=== PATIENT | female | born 1980 | race Caucasian/White ===

== ENCOUNTER 2020-01-21 11:00 | Outpatient (CLI) | payer BC, SELFPAY | END 2020-01-21 11:01 | disposition home or self-care (01) | LOC: CHSLAB 11:05 | PROVIDERS: PCP Family Medicine; Visit Provider Specialist | DX: D22.4 Melanocytic nevi of scalp and neck (principal) | CPT/HCPCS: 88305 ==

== ENCOUNTER 2020-10-16 12:58 | Outpatient (CLI) | payer BC, SELFPAY | END 2020-10-16 12:59 | disposition home or self-care (01) | PROVIDERS: PCP Family Medicine; Visit Provider Specialist | DX: L98.9 Disorder of the skin and subcutaneous tissue, unspecified (principal) | CPT/HCPCS: 88305 ==

== ENCOUNTER 2021-11-02 11:13 | Outpatient (CLI) | payer BC, SELFPAY | END 2021-11-02 11:14 | disposition home or self-care (01) | LOC: CHSOUTPT 11:16 | PROVIDERS: PCP Family Medicine; Visit Provider Specialist | DX: D22.5 Melanocytic nevi of trunk (principal) | CPT/HCPCS: 88305 ==

== ENCOUNTER 2022-01-06 00:22 | Day surgery (SDC) | payer BC, SELFPAY ==
[2021-12-22 15:26] VITALS: BMI 32.3
--- NOTE | 2022-01-05 14:43 | WPDANESEPPF ---
Anes - Initial Pre Proc Eval Procedure: Operation Date: 01/06/22 07:30 Proposed Procedures p Colonoscopy - Nate Nicole DO Date/Time: 01/05/22 14:43 Surgeon: Nate Nicole DO Pre Op Diagnosis: change in bowel habits Patient Data Age: 41 Gender: F Height: 1.65 m Weight: 88 kg Allergies Allergy/AdvReac Type Severity Reaction Status Date / Time No Known Allergies Allergy Verified 01/06/22 06:26 Home Medications Medication Instructions Recorded Confirmed Type escitalopram oxalate 10 mg PO DAILY 12/22/21 12/22/21 History Patient hx anesthesia problems: none Family hx anesthesia problems: none Results Review: All pre-operative results and documents have been reviewed as part of the pre-operative evaluation. [facility] Past Medical History Medical History (Updated 01/05/22 @ 14:45 by Joseph Lux DO) Anxiety Surgical History Surgical History H/O: H/O: hysterectomy Family History Family History Mother Hyperlipidemia Social History Social History Smoking status: Never smoker Alcohol intake: never Substance use: never Substance use type: does not use Living arrangements: with family Spiritual care concerns: No Anes - Eval Final PreProcedure Day of Procedure 01/05/22 14:43 Patient weight: obese Heart: regular rate and rhythm Lungs: clear to auscultation and normal air movement Airway: Mallampati scale class II Neurological: alert and oriented Last oral intake: >/= 8 hours ASA classification: II Emergent: no Anesthetic plan: proceed Anesthesia type and monitoring: general GIVS and standard monitoring Results Review: All pre-operative results and documents have been reviewed as part of the pre-operative evaluation. Informed Consent: The patient's anesthetic plan and its attendant risks and benefits were discussed with the patient/family/POA. Questions were solicited and answers provided to the satisfaction of the patient/family/POA.
[2022-01-06 06:28] VITALS: BP 131/91; PULSE 81; RESP 18; TEMP 36.3; O2SAT 100
[2022-01-06] MEDS: LACTATED RINGERS 1,000 ML 150 ML IV CONT (06:36)
--- NOTE | 2022-01-06 07:32 | PM.IMHP ---
H&P: HPI History of Present Illness Date/Time: 01/06/22 07:32 Chief Complaint: Pelvic pain, change in bowel habits Narrative: this is a 41-year-old woman who presents for evaluation of pelvic and lower abdominal pain along with change in bowel habits. She has frequent constipation and feels like she has trouble fully evacuating. She has also had some suspicions of infections going on, but is not sure if she has had yeast infections or other sources of infection. She has not had any imaging for the abdominal pain. She denies any blood in her stools. She denies any family history colon cancer. She has never had a colonoscopy before. Review of Systems Review of Systems: All systems reviewed & are unremarkable except as noted in HPI and below Constitutional: Constitutional: Denies chills, Denies fever(s), Denies headache(s) and Denies weight loss Eyes: Eyes: Denies change in vision ENT: Denies dizziness, Denies headache(s), Denies neck mass and Denies throat swelling Cardiovascular: Cardiovascular: Denies chest pain, Denies lightheadedness and Denies dyspnea Respiratory: Respiratory: Denies cough, Denies dyspnea and Denies wheezing Gastrointestinal: Gastrointestinal: Denies abdominal pain, Reports change in bowel habits, Reports constipation, Denies nausea and Denies vomiting Genitourinary: Genitourinary: Denies hematuria and Denies dysuria Musculoskeletal: Musculoskeletal: Reports as per HPI Integumentary/Breasts: Skin/Breast: Reports as per HPI Neurologic: Denies dizziness and Denies headache(s) Allergic/Immunologic: Allergic/Immunologic: Denies throat swelling and Denies wheezing PMF Past Medical History Medical History Anxiety Surgical History Surgical History H/O: H/O: hysterectomy Family History Family History Mother Hyperlipidemia Social History Social History Smoking status: Never smoker Alcohol intake: never Substance use: never Substance use type: does not use Living arrangements: with family Spiritual care concerns: No Meds Home Medications and Allergies Home Medications Medication Instructions Recorded Confirmed Type escitalopram oxalate 10 mg PO DAILY 12/22/21 12/22/21 History Allergies Allergy/AdvReac Type Severity Reaction Status Date / Time No Known Allergies Allergy Verified 01/06/22 06:26 Vital Signs Vital Signs - 24 hr 01/06/22 06:28 Temperature 36.3 C L Pulse Rate 81 Respiratory Rate 18 Blood Pressure 131/91 H Pulse Oximetry 100 Exam Const: General: no acute distress and alert Orientation/consciousness: patient oriented x3 HENMT: Head: normocephalic and atraumatic Ears: hearing grossly normal bilaterally General nose exam: Normal nares present Mouth: Yes Normal oral and palatal mucosa present Eyes: Periorbital: periorbital findings normal Sclera: sclerae normal EOM: EOMs intact bilaterally Neck: Neck: normal visual inspection, no lymphadenopathy and trachea midline Chest: Chest palpation & inspection: normal inspection of the chest Resp: Effort & Inspection: normal respiratory effort Auscultation: clear to auscultation bilaterally Cardio: Jugular venous distension: no JVD Rate: regular rate Rhythm: regular rhythm Heart sounds: S1 normal heart sound present and S2 normal heart sound present Peripheral pulses: Peripheral pulses 2+ throughout GI: Inspection: normal to inspection GI Palp: Yes Soft to palpation, No Tenderness to palpation present (GI), No Guarding due to palpation present (GI) and No Rebound tenderness present Percussion: Yes normal to percussion Auscultation: normal bowel sounds : General: Yes no CVA tenderness Back/Spine/Pelvis: Back: no CVA tenderness Neuro: Genera
[2022-01-06 07:57] VITALS: BP 119/76; PULSE 67; RESP 20; O2SAT 97
[2022-01-06 08:07] VITALS: BP 144/82; PULSE 72; RESP 20; O2SAT 99
[2022-01-06 08:17] VITALS: BP 139/86; PULSE 70; RESP 18; O2SAT 99
== END 2022-01-06 08:32 | disposition home or self-care (01) ==
PROVIDERS: PCP Family Medicine; Visit Provider Surgery
PROC: 0DJD8ZZ Inspection of Lower Intestinal Tract, Via Natural or Artificial Opening Endoscopic (ICD-10-PCS; CPT 45378; principal; 2022-01-06 07:30)
DX: R19.4 Change in bowel habit (principal); K62.89 Other specified diseases of anus and rectum; K64.8 Other hemorrhoids; F41.9 Anxiety disorder, unspecified; E66.9 Obesity, unspecified; Z68.32 Body mass index [BMI] 32.0-32.9, adult
CPT/HCPCS: 45378; J2704; J7120

== ENCOUNTER 2022-04-14 11:51 | Outpatient (CLI) | payer BC, SELFPAY ==
--- NOTE | ~2022-04-14 | XR_ITS ---
XR pelvis 1-2V 04/14/2022 12:13 Indication: Pelvic pain Procedure: AP pelvis Comparison: No prior studies for comparison. Findings: Pelvic rings are intact. No fracture or traumatic malalignment. No significant soft tissue abnormality. Sacral foramen are symmetric. There are pelvic phleboliths. Impression: 1: No significant bone or joint abnormality. Reviewed, dictated and finalized at location A. Impression: 1: No significant bone or joint abnormality.
--- NOTE | ~2022-04-14 | XR_ITS ---
XR lumbar spine 2-3V 04/14/2022 12:13 Indication: Low back pain. Hip pain. Pain is chronic. Procedure: 3 views lumbar spine Comparison: No prior studies for comparison. Findings: There is moderate disc narrowing at L3-4. There is disc narrowing as well as at L5-S1. No a cute fracture or traumatic malalignment. Mild wedge-shaped appearance to T11-L1, likely chronic. No e vidence for spondylolisthesis. Mild levocurvature of the lumbar spine. Sacral foramen are symmetric. Impression: 1: Moderate lumbar spondylosis. Reviewed, dictated and finalized at location A. Impression: 1: Moderate lumbar spondylosis.
== END 2022-04-14 11:52 | disposition home or self-care (01) ==
LOC: CHSIMG 11:57
PROVIDERS: PCP Chiropractor; Visit Provider Chiropractor
DX: M54.50 Low back pain, unspecified (principal); R10.2 Pelvic and perineal pain; M25.559 Pain in unspecified hip
CPT/HCPCS: 72100; 72170

== ENCOUNTER 2022-04-21 07:42 | Outpatient (CLI) | payer BC, SELFPAY ==
--- NOTE | ~2022-04-21 | MM_ITS ---
EXAMINATION: MM screening jason BI w brown HISTORY: Screening TECHNIQUE: Craniocaudal and mediolateral oblique 3-D tomosynthesis images were obtained and synthetic 2-D images were generated. CAD analysis was submitted and interpreted. COMPARISON: No prior mammogram is available for comparison at this institution. BREAST PARENCHYMAL COMPOSITION: There are scattered areas of fibroglandular density. FINDINGS: There are asymmetries in the right breast. No discrete mass, architectural distortion or ab normal calcifications. The left breast is unremarkable without evidence for malignancy. IMPRESSION: 1. Right breast asymmetries. 2. Additional mammographic views and possible breast ultrasound are recommended. BI-RADS Category 0: Incomplete: Needs additional imaging evaluation. Reviewed, dictated and finalized at location A. IMPRESSION: 1. Right breast asymmetries. 2. Additional mammographic views and possible breast ultrasound are recommended . BI-RADS Category 0: Incomplete: Needs additional imaging evaluation.
== END 2022-04-21 07:43 | disposition home or self-care (01) ==
LOC: CHSIMG 07:44
PROVIDERS: PCP Family Medicine; Visit Provider Obstetrics & Gynecology
DX: Z12.31 Encounter for screening mammogram for malignant neoplasm of breast (principal)
CPT/HCPCS: 77063; 77067

== ENCOUNTER 2022-05-03 08:54 | Outpatient (CLI) | payer BC, SELFPAY ==
--- NOTE | ~2022-05-03 | MMUS_ITS ---
EXAMINATION: MM diagnostic jason RT w brown, US breast RT limited HISTORY: Right mammographic asymmetries reported on 04/2022 screening mammogram examination TECHNIQUE: Additional 3-D tomosynthesis images of the right breast were performed and synthetic 2-D i mages were generated. CAD analysis was submitted and interpreted. High resolution subareolar and uppe r outer and lower-outer quadrant right breast ultrasound was performed. COMPARISON: 04/2022 bilateral screening mammogram FINDINGS: MAMMOGRAPHIC FINDINGS: No suspicious mass, architectural distortion, malignant calcification, skin thickening or retraction is detected. ULTRASOUND: No suspicious mass, shadowing or other significant sonographic finding is noted in the subareolar are a or upper outer or lower outer quadrant. IMPRESSION: 1. No mammographic evidence of malignancy 2. Routine annual mammographic screening is recommended. BI-RADS Category 1: Negative Reviewed, dictated and finalized at location A. IMPRESSION: 1. No mammographic evidence of malignancy 2. Routine annual mammographic screening is recommended. BI-RADS Category 1: Negative
== END 2022-05-03 08:55 | disposition home or self-care (01) ==
LOC: CHSIMG 08:55
PROVIDERS: PCP Family Medicine; Visit Provider Obstetrics & Gynecology
DX: R92.8 Other abnormal and inconclusive findings on diagnostic imaging of breast (principal)
CPT/HCPCS: 76642; 77061; 77065; G0279

== ENCOUNTER 2022-05-06 07:52 | Outpatient (RCR) | payer BC, SELFPAY ==
--- NOTE | 2022-05-06 08:04 | PTOPEVAL ---
Thank you for referring Marcela Andrade to [facility].? The patient is scheduled to be seen for therapy? ____x/week for ___ weeks. Please review, sign, date and return this plan of care SHIV. I agree with and certify that the following plan of care is medically necessary. Referring Physician Date Admitting Provider: Attending Provider: Santi Spence, DC Referring Provider: *PT Outpatient Evaluation Start: 05/06/22 07:07 Freq: Status: Active Protocol: Document 05/06/22 07:05 [facility] (Rec: 05/06/22 08:02 [facility] [email or web address]) Therapy Assessment Status Assessment Status Assessment Status Evaluation Outpatient Past Medical History Neurological History Hx Neurological Disorders No Significant History Cardiovascular History Hx Cardiac Disorders No Significant History Respiratory History Hx COVID-19 Yes: 10/2021 Hx Pneumonia Yes: 08/2012 HOSPITALIZED Gastrointestinal History Hx Irritable Bowel Yes: CONSTIPATION/DIARRHEA Genitourinary History Hx Other Genitourinary Disorders Yes: FREQUENT URINATION Musculoskeletal History Hx Musculoskeletal Disorders No Significant History Hematological History Hx Hematological Disorders No Significant History Endocrine History Hx Endocrine Disorders No Significant History HEENT History Hx Sinus Problems Yes: BALLOON SINOPLASTY 2020 Reproductive History Hx Section Yes: X2 Psychosocial History Hx Anxiety Yes Pain History History of Any Previous or Ongoing No Significant History Instance of Pain Anesthesia History Hx Anesthesia Reactions No Significant History Evaluation Information Problem Diagnosis lower back pain, lumbago Onset 05/03/22 Additional Evaluation Detail oswestry = 36% functionally declined Subjective Information patient reports she is seeking Query Text:As Reported By Patient/ therapy for pain in the lower Family back that is radiating out to her lower hips. she reports she has been battling this for a few months. she reports the L side is currently worse. she reports she is unsure what causes her increased pain/ symptoms. she reports waking up she feels awful. she reports usually she is able to get moving and she feels better. she reports she has had issues with instability in
--- NOTE | 2022-05-10 16:14 | PTOPEVAL ---
Thank you for referring Marcela Andrade to [facility].? The patient is scheduled to be seen for therapy? ____x/week for ___ weeks. Please review, sign, date and return this plan of care SHIV. I agree with and certify that the following plan of care is medically necessary. Referring Physician Date Admitting Provider: Attending Provider: Slade Peralta MD Referring Provider: *PT Outpatient Evaluation Start: 05/06/22 07:07 Freq: Status: Active Protocol: Document 05/06/22 07:05 [facility] (Rec: 05/06/22 08:02 [facility] [email or web address]) Therapy Assessment Status Assessment Status Assessment Status Evaluation Outpatient Past Medical History Neurological History Hx Neurological Disorders No Significant History Cardiovascular History Hx Cardiac Disorders No Significant History Respiratory History Hx COVID-19 Yes: 10/2021 Hx Pneumonia Yes: 08/2012 HOSPITALIZED Gastrointestinal History Hx Irritable Bowel Yes: CONSTIPATION/DIARRHEA Genitourinary History Hx Other Genitourinary Disorders Yes: FREQUENT URINATION Musculoskeletal History Hx Musculoskeletal Disorders No Significant History Hematological History Hx Hematological Disorders No Significant History Endocrine History Hx Endocrine Disorders No Significant History HEENT History Hx Sinus Problems Yes: BALLOON SINOPLASTY 2020 Reproductive History Hx Section Yes: X2 Psychosocial History Hx Anxiety Yes Pain History History of Any Previous or Ongoing No Significant History Instance of Pain Anesthesia History Hx Anesthesia Reactions No Significant History Evaluation Information Problem Diagnosis lower back pain, lumbago Onset 05/03/22 Additional Evaluation Detail oswestry = 36% functionally declined Subjective Information patient reports she is seeking Query Text:As Reported By Patient/ therapy for pain in the lower Family back that is radiating out to her lower hips. she reports she has been battling this for a few months. she reports the L side is currently worse. she reports she is unsure what causes her increased pain/ symptoms. she reports waking up she feels awful. she reports usually she is able to get moving and she feels better. she reports she has had issues with instability in
--- NOTE | 2022-05-31 08:47 | PTOPPROG ---
Evaluation Information Assessment Status Progress Diagnosis Low Back Pain Subjective Information Marcela reports her lower back pain is minimal today but she rested a lot over the weekend. She reports having more pain after her PT appointment Monday. Reports she did more standing exercises on her Monday appointment. She feels she is improving overall with physical therapy but she is not able to perform all activity that she would like to noting ongoing difficulty with prolonged sitting, sleeping, yard work, and heavy house chores. She notes tightness in the left hip after prolonged sitting and feels inflammed after activity. She does not have a follow up with her MD at this time. Assessment PT Clinical Summary Marcela has completed 8 physical therapy visits for low back pain. She is reporting overall improvements but still has limitations in daily activities of prolonged sitting and sleeping. She also has difficulty with yard work and heavy house chores. She is demonstrating ongoing tendernss in the left glutes and quadratus lumborum, decreased lumbar AROM with pain elicited during left lateral flexion, decreased core strength, and decreased left gluteal strength. She will continue to benefit from skilled PT to further address these physical and functional limitations. Plan of Care Interventions Electrical Stimulation,Hot Pack/Cold Pack,Manual Therapy,Therapeutic Exercise PT Services Indicated Yes These treatments will address the objective and functional deficits as defined above. The patient will be advanced safely and appropriately in order for the patient to progress towards his/her prior level of function. Additional exercises will be introduced and as well as a comprehensive home exercise program upon discharge, if needed, ?to ensure carryover of functional gains achieved in the clinic. This treatment plan has been reviewed and agreement upon by the patient.
--- NOTE | 2022-06-15 08:00 | PTOPDC ---
Assessment and note entered by JT File, PT Evaluation Information Assessment Status Progress Diagnosis Low Back Pain Subjective Information patient reports she is doing pretty good overall . she reports she does feel like she is back to the way she felt before therapy. however, she does not have quite the intense pain. she agrees she feels she is managing pain with exercises/ activities. Reported Pain Level Pain Score 1: Self Report Assessment PT Clinical Summary mrs. moody presents to skilled PT services for her 12th skilled therapy this date. as of today, she reports better control and management of pain at home with HEP. she displays increased core stability, and decreased overall pain/radicular symptoms. she will DC skilled PT this date and continue with HEP independent at home to manage pain/symptoms. Plan of Care Treatment Frequency and DC to independent HEP Duration
== END 2022-06-15 13:38 | disposition home or self-care (01) ==
LOC: CHSPT 07:52
PROVIDERS: PCP Family Medicine; Visit Provider Family Medicine
DX: M54.50 Low back pain, unspecified (principal); M51.36 Other intervertebral disc degeneration, lumbar region
CPT/HCPCS: 97014; 97110; 97140; 97161; G0283

== ENCOUNTER 2022-11-08 12:16 | Outpatient (CLI) | payer BC, SELFPAY | END 2022-11-08 12:17 | disposition home or self-care (01) | PROVIDERS: PCP Family Medicine; Visit Provider Specialist | DX: D22.62 Melanocytic nevi of left upper limb, including shoulder (principal) | CPT/HCPCS: 88305 ==

== ENCOUNTER 2023-10-24 13:33 | Outpatient (CLI) | payer BC, SELFPAY | END 2023-10-24 13:34 | disposition home or self-care (01) | LOC: CHSLAB 13:38 | PROVIDERS: PCP Family Medicine; Visit Provider Specialist | DX: D22.5 Melanocytic nevi of trunk (principal) | CPT/HCPCS: 88305 ==

== ENCOUNTER 2025-04-08 07:33 | Outpatient (CLI) | payer BC, SELFPAY ==
[2025-04-08 07:55] LABS: Add Urine Microscopic? NO; Appearance Urine Clear (Clear); Glucose Urine UA Negative (Negative); Hematocrit 40.3 % (35.0-49.0); Hemoglobin 13.2 g/dL (12.0-15.0); Immature Granulocyte Percent A 0.2 % (0.0-0.0); Leukocyte Esterase Ur Negative (Negative); Lymphocytes Absolute Auto 2.43 K/mm3 (1.10-4.50); Mean Corpuscular HGB Conc 32.8 g/dL (32-36); Mean Corpuscular Hemoglobin 28.5 pg (27.0-31.0); Mean Corpuscular Volume 87.0 fL (78.0-102.0); Nitrate Urine Negative (Negative); Nucleated Red Blood Cells Absolute Auto 0.00 K/mm3 (0.00-0.00); Nucleated Red Blood Cells Perc 0.0 % (0-0.0); Platelet Count Result 294 K/mm3 (150-420); Red Blood Count 4.63 M/mm3 (4.20-5.40); Specific Grav Ur 1.010 (1.010-1.020); White Blood Count 6.4 K/mm3 (4.8-10.8)
[2025-04-08 08:36] LABS: Alanine Aminotransferase 11 U/L (6-35); Albumin Level 4.1 g/dL (3.5-5.1); Alkaline Phosphatase 43 U/L (38-126); Anion Gap 4 mmol/L (4-12); Aspartate Amino Transferase 20 U/L (14-36); Bilirubin,Total 0.5 mg/dL (0.2-1.3); Blood Urea Nitrogen 13 mg/dL (7-17); Calcium 9.0 mg/dL (8.4-10.2); Carbon Dioxide 27 mmol/L (22-30); Chloride 107 mmol/L (98-107); Cholesterol 197 mg/dL (0-200); Estimated Glomerular Filt Rate > 60; Glucose 79 mg/dL (65-110); Osmolality Calculated 285 mOsm/kg (285-295); Potassium 4.2 mmol/L (3.4-5.0); Sodium 138 mmol/L (137-145); Total Protein 6.9 g/dL (6.3-8.2); Triglycerides 78 mg/dL (<150)
[2025-04-08 09:07] LABS: Thyroid Stimulating Hormone 2.300 uIU/mL (0.465-4.680)
[2025-04-08 09:30] LABS: HDL Direct 51 mg/dL
== END 2025-04-08 07:34 | disposition home or self-care (01) ==
PROVIDERS: PCP Family Medicine; Visit Provider Family Medicine
DX: R53.83 Other fatigue (principal); Z13.220 Encounter for screening for lipoid disorders
CPT/HCPCS: 36415; 80053; 80061; 81003; 84443; 85025

== ENCOUNTER 2025-04-10 07:30 | Outpatient (CLI) | payer BC, SELFPAY ==
--- NOTE | ~2025-04-10 | MM_ITS ---
EXAMINATION: MM screening jason BI w brown HISTORY: Screening TECHNIQUE: Craniocaudal and mediolateral oblique 3-D tomosynthesis images were obtained and synthetic 2-D images were generated. CAD analysis was submitted and interpreted. COMPARISON: 04/21/2022. BREAST PARENCHYMAL COMPOSITION: There are scattered areas of fibroglandular density. FINDINGS: There is no evidence of suspicious mass, calcification, or architectural distortion to sug gest malignancy in either breast. IMPRESSION: 1. No mammographic evidence of malignancy. 2. Recommend routine screening mammography in one year. BI-RADS Category 1: Negative Reviewed, dictated and finalized at location B.
== END 2025-04-10 07:31 | disposition home or self-care (01) ==
PROVIDERS: PCP Family Medicine; Visit Provider Family Medicine
DX: Z12.31 Encounter for screening mammogram for malignant neoplasm of breast (principal)
CPT/HCPCS: 77063; 77067